=== PATIENT | female | born 1980 | race Caucasian/White ===

== ENCOUNTER 2016-10-21 11:53 | Emergency (ER) | payer BC, OTHER ==
[~2016-10-21] VITALS: Ht 177.8 cm; Wt 130.0 kg
[~2016-10-21 11:53] MED LIST: INSU100C SC; LANT3I SC; LORA-441 PO; METF1000 PO; [UNRECOGNIZED DRUG - CODE] IV
[2016-10-21 11:56] VITALS: Ht 177.8 cm; Wt 130.0 kg
[2016-10-21] MEDS ORDERED: KETOROLAC 60 MG INJ IM STA (12:49)
[2016-10-21] MEDS ORDERED: CARI350T PO (13:36)
--- NOTE | 2016-10-21 13:39 | ERD ---
ER Documentation Chief Complaint Date/Time DATE: 10/21/16 TIME: 13:38 Chief Complaint bilateral leg cramping x 2 days HPI This 36 year female complains of 2 day history of low back pain and bilateral leg cramping. She has a history of low back pain since having a child received an epidural 4 years ago she states that she has a bowel or bladder incontinence , weakness, urinary complaints, fevers. She denies any fall or inciting events. Denies any saddle anesthesia or numbness. The pain started while she was sleeping. ROS All systems reviewed and are negative except as per history of present illness. Medications Home Meds Active Scripts Carisoprodol* (Soma*) 350 Mg Tablet, 350 MG PO TID Y for MUSCLE SPASMS, #20 TAB Prov:UMAIR WONG MD 10/21/16 Reported Medications Lorazepam* (Ativan*) 0.5 Mg Tablet, 0.5 MG PO BID Y for ANXIETY, TAB 04/17/14 Metformin Hcl* (Metformin Hcl*) 1,000 Mg Tablet, 2000 MG PO DAILY, TAB 04/17/14 Insulin Lispro (Humalog) 100 U/Ml Cartridge, 18 UNITS SC WITH MEALS, EA 04/17/14 Insulin Glargine* (Lantus*) 100 Unit/Ml Soln, 27 UNIT SC BID, EA 04/17/14 Daptomycin (Cubicin) 500 Mg/Vial Vial, 500 MG IV DAILY, VIAL 04/17/14 Allergies Allergies: Coded Allergies: metronidazole (Verified Allergy, Unknown, 04/17/14) rash PMhx/Soc History of Surgery: Yes (4 C SECTION AND LEFT FOOT SURGERY) Anesthesia Reaction: No Hx Neurological Disorder: No Hx Respiratory Disorders: No Hx Cardiac Disorders: No Hx Psychiatric Problems: Yes (DEPRESION, ANXIETY) Hx Miscellaneous Medical Probl: Yes (DM) Hx Alcohol Use: No Hx Substance Use: No Hx Tobacco Use: No Physical Exam Vitals Vital Signs Date Time Temp Pulse Resp B/P Pulse Ox O2 Delivery O2 Flow Rate FiO2 10/21/16 11:56 98.2 104 18 145/100 94 Physical Exam Const: [] Alert, [id number] per Head: Atraumatic Eyes: Normal Conjunctiva ENT: Normal External Ears, Nose and Mouth. Neck: Full range of motion..~ No meningismus. Resp: Clear to auscultation bilaterally Cardio: Regular rate and rhythm, no murmurs Abd: Soft, non tender, non distended. Normal bowel sounds Skin: No petechiae or rashes Back: No midline or flank tenderness. Tender in the L4-5 paraspinous muscles without midline tenderness or deformities. No CVA tenderness. Ext: No cyanosis, or edema Neur: Awake and alert Psych: Normal Mood and Affect Results 24 hrs Current Medications Medications (Trade) Dose Ordered Sig/Lola Route PRN Reason Start Time Stop Time Status Last Admin Dose Admin Ketorolac Tromethamine (Toradol) 60 mg ONCE STAT IM 10/21/16 12:49 10/21/16 12:50 DC 10/21/16 13:20 Procedures/MDM Patient presents with low back pain cramping in the lower extremities. There is no signs or symptoms to suggest cauda equina syndrome, neurologic deficit, epidural abscess, bacterial infection. She was given Toradol 60 mg IM here was given a stroke with some instructions for back exercises instructions to follow- up with her primary care doctor. The patient was stable with no new complaints during the ER course. Clinically, there is no current evidence to suggest meningitis, sepsis, acute abdomen, pneumonia, acute coronary syndrome, pulmonary embolism, or any other emergent condition appearing to require further evaluation or hospitalization. The patient should certainly return for any new or worsening symptoms per the aftercare instructions. They should otherwise follow-up with her primary care doctor for reevaluation this week. Departure Diagnosis: Primary Impression: Back pain Back pain location: low back pain Chronicity: acute Back pain laterality: bilateral Sciatica presence: without sciatica Qualified Code: M54.5 - Acute bilateral low back pain without sciatica Condition: Stable Patient Instructions: Back Pain (Acute Or Chronic) Additional Instructions: Recheck for new or worsening symptoms or primary care doctor. UMAIR WONG MD October 21, 2016 13:39
== END 2016-10-21 14:09 | disposition home or self-care (01) ==
LOC: FTE 11:53
DX: M54.5 Low back pain (principal); E11.9 Type 2 diabetes mellitus without complications; Z79.84 Long term (current) use of oral hypoglycemic drugs; Z79.4 Long term (current) use of insulin
CPT/HCPCS: J1885